=== PATIENT | female | born 1985 | race Caucasian/White ===

== ENCOUNTER 2016-12-25 10:15 | Emergency (ER) | payer BC ==
[~2016-12-25] VITALS: Ht 167.6 cm; Wt 64.4 kg
--- OUTSIDE RECORDS SUMMARY | 2016-12-25 10:23 | XMS REPORT | Continuity of Care Document ---
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 Visit Date/Time Discharge Status Pt. Type Provider Facility Loc./Unit Complaint [id number] 12/09/2016 14:28:00 12/09/2016 23: 59:59 [facility] [id number] 12/09/2016 13:51:00 12/09/2016 23: 59:59 [facility] Out[facility]
[2016-12-25] MEDS ORDERED: PREN-8 PO (10:51)
[2016-12-25] MEDS ORDERED: LEVO100T7 PO (10:51)
[2016-12-25 10:53] LABS: BASOPHILS % (AUTO) 0 % (0-2); EOSINOPHILS # (AUTO) 0.1 10^3uL; EOSINOPHILS % (AUTO) 1 % (0-4); LYMPHOCYTES # (AUTO) 1.5 X10^3; MEAN CORPUSCULAR HGB CONC 34.6 g/dL (31.0-37.0); MEAN CORPUSCULAR VOLUME 92 FL (80-100); MEAN PLATELET VOLUME 10.2 FL (6.0-9.5); MONOCYTES # (AUTO) 0.4 X10^3; MONOCYTES % (AUTO) 6 % (3-11); NEUTROPHILS # (AUTO) 5.4 X10^3; NEUTROPHILS % (AUTO) 72 % (51-67); PLATELET COUNT 243 10^3uL (150-450); WHITE BLOOD COUNT 7.45 10^3uL (4.0-11.0)
[2016-12-25 10:55] LABS: BILIRUBIN,URINE Negative (Negative); CLARITY,URINE Clear; COLOR,URINE Yellow; GLUCOSE, URINE (UA) Negative (Negative); LEUKOCYTE ESTERASE ,URINE Negative (Negative); PH,URINE 6.5 (5.0 - 8.0); UROBILINOGEN,URINE 0.2 mg/dL (0.2-1.0)
[2016-12-25 10:59] LABS: MEAN CORPUSCULAR HEMOGLOBIN 31.8 PG (26.0-34.0)
[2016-12-25] MEDS ORDERED: fentaNYL 100 MCG/2 ML VIAL IV ONE (11:00)
[2016-12-25] MEDS ORDERED: ONDANSETRON 2 MG/ML (Z0FRAN) 2 ML VIAL IV ONE (11:00)
[2016-12-25 11:07] LABS: ALBUMIN 4.1 g/dL (3.4-5.0); ANION GAP 14.4 MEQ/L (3-15); CALCULATED IONIZED CALCIUM 3.9 mg/dL (3.8-4.6); TOTAL PROTEIN 7.2 g/dL (6.4-8.5)
[2016-12-25 11:17] LABS: AMPHETAMINE SCREEN, URINE Negative (Negative); CANNABINOID SCREEN, URINE Negative (Negative); METHAMPHETAMINE SCREEN URINE S NEGATIVE (NEGATIVE); OPIATE SCREEN URINE Negative (Negative); PROPOXYPHENE STAT NEGATIVE (NEGATIVE)
--- NOTE | 2016-12-25 11:26 | NUR ---
STATES SHE DOESN'T NEED MUCH FOR PAIN MED & THIS PAIN MED HAS DONE WHAT MOST MEDS DO MAKING HER FEEL "WHOOZY". CL
--- NOTE | 2016-12-25 11:27 | NUR ---
DR COLLEEN SKINNER FOR PT DISCUSSION W/DR SWANN. CL
--- NOTE | 2016-12-25 11:34 | NUR ---
DR MATTHEWS RETURNS CALL TO DR SWANN TO DISCUSS PT. CL
[2016-12-25] MEDS ORDERED: ONDA4TAB8 PO (11:43)
[2016-12-25] MEDS ORDERED: HYDR-3702 PO (11:43)
[2016-12-25 12:32] VITALS: BP 107/69
== END 2016-12-25 12:25 | disposition home or self-care (01) ==
LOC: ED 10:20
DX: O26.611 Liver and biliary tract disorders in pregnancy, first trimester (principal); Z3A.13 13 weeks gestation of pregnancy
CPT/HCPCS: 36415; 80053; 80307; 81003; 83690; 85025; 86140; 96361; 96374; 96375; 99284; J2405; J3010; J7030; 99283